=== PATIENT | female | born 1930 | race Caucasian/White ===

== ENCOUNTER 2018-06-01 18:12 | Emergency (ER) | payer MEDICARE ==
[~2018-06-01] VITALS: Ht 165.1 cm; Wt 76.7 kg
[2018-06-01 18:16] VITALS: BP 175/78
[2018-06-01] MEDS ORDERED: KETOROLAC 30 MG/ML VIAL IVP ONE (18:25)
[2018-06-01] MEDS ORDERED: hydrALAZINE 20 MG/ML VIAL IVP ONE (18:35)
[2018-06-01 20:30] VITALS: BP 165/74
== END 2018-06-01 20:30 | disposition home or self-care (01) ==
LOC: MED 18:12
DX: S00.83XA Contusion of other part of head, initial encounter (principal); S80.01XA Contusion of right knee, initial encounter; I10 Essential (primary) hypertension; Z88.2 Allergy status to sulfonamides; W01.0XXA Fall on same level from slipping, tripping and stumbling without subsequent striking against object, initial encounter; Y93.89 Activity, other specified; Y92.098 Other place in other non-institutional residence as the place of occurrence of the external cause; Y99.8 Other external cause status
CPT/HCPCS: 70450; 70486; 72125; 73562; 96374; 96375; 99284; J0360; J1885; Q0092

== ENCOUNTER 2018-08-29 16:13 | Emergency (ER) | payer MEDICARE ==
[~2018-08-29] VITALS: Ht 160 cm; Wt 63.5 kg
[2018-08-29 16:22] VITALS: BP 180/78
--- NOTE | 2018-08-29 16:25 | NUR ---
PT. BIB ALS FROM HOME DUE TO RT LEG PAIN AND WEAKNESS. STATES " SHE FELL ABOUT 2 MONTHS AGO SHE CAME HERE AND THEY SAID SHE WAS OKAY BUT EVER SINCE THEN IT HAS PROGRESSIVELY BEEN GETTING WORSE THE PAIN AND LAST NIGHT IT GOT WORSE SHE SAID SHE COULDNT WALK". 10/10 [place] PAIN WHEN TRYING TO WALK AND 5/10 [place] PAIN WHEN LAYING DOWN THAT RADIATES FROM HIP DOWN TO RT FOOT. NO BRUISING OR DEFORMITY NOTED TO RT LEG . CAP REFILL LESS THAN 3 SEC. RR EVEN AND UNLABORED. PT. ABLE TO SPEAK IN FULL AND COMPLETE SENTENCES. AT BEDSIDE. WILL CONTINUE TO MONITOR. SAFETY PRECAUTIONS IMPLEMENTED. SHIRIN SOLO NOTIFIED.
--- NOTE | 2018-08-29 16:45 | NUR ---
PT. UNABLE TO PROVIDE URINE AT THIS TIME. PROVIDED A CUP OF WATER
--- NOTE | 2018-08-29 16:46 | NUR ---
PT. PLACED ON BED MADSEN AND PROVIDED WITH A CUP OF WATER.
--- NOTE | 2018-08-29 16:56 | NUR ---
PT. TAKEN TO CT SCAN AND XRAY BY [facility] VIA SKYE.
[2018-08-29 17:41] LABS: BASOPHILS # (AUTO) 0.1 K/uL (0.00-0.22); BASOPHILS % (AUTO) 0.9 % (0.0-2.0); EOSINOPHILS # (AUTO) 0.5 K/uL (0-0.4); EOSINOPHILS % (AUTO) 5.8 % (0.0-4.0); HEMATOCRIT 40.9 % (36-48); HEMOGLOBIN 13.4 g/dL (12.0-16.0); LYMPHOCYTES # (AUTO) 2.2 K/uL (2.5-16.5); MEAN CORPUSCULAR HEMOGLOBIN 29 pg (27-31); MEAN CORPUSCULAR HGB CONC 33 g/dL (33-37); MONOCYTES # (AUTO) 0.7 K/uL (0.8-1.0); MONOCYTES % (AUTO) 7.9 % (1.7-9.3); NEUTROPHILS # (AUTO) 5.1 K/uL (1.8-7.7); NEUTROPHILS % (AUTO) 59.4 % (42.2-75.2); PLATELET COUNT (AUTO) 221 K/uL (140-450); RED CELL DISTRIBUTION WIDTH 14.6 % (11.6-13.7); WHITE BLOOD COUNT (AUTO) 8.5 K/uL (4.8-10.8)
--- NOTE | 2018-08-29 17:50 | NUR ---
PT. STATED " THEY DID NOT EVEN XRAY MY LEG AND I CAME BECAUSE MY LEG HURTS". NOTIFIED ER MD SHAH AND SAID HE WAS TO SEE THE PATIENT AND SEE WHAT HAS BEEN DONE. INFORMED PATIENT AT THIS TIME.
[2018-08-29 18:01] LABS: ANION GAP 9.2 (8-16); CARBON DIOXIDE 32.2 mmol/L (21-32); CHLORIDE 103 mmol/L (98-107); CREATININE 1.1 mg/dL (0.6-1.3); GLUCOSE 113 mg/dL (74-106); POTASSIUM 4.4 mmol/L (3.5-5.1); SODIUM SERUM 140 mmol/L (136-145); UREA NITROGEN, BLOOD 18 mg/dL (7-18)
[2018-08-29 18:16] LABS: ALBUMIN 3.7 g/dL (3.4-5.0); ASPARTATE AMINOTRANSFERASE 22 U/L (15-37); LIPASE 192 U/L (73-393); MAGNESIUM 1.9 mg/dL (1.8-2.4); THYROID STIMULATING HORMONE 2.71 uIU/mL (0.34-3.74); TOTAL BILIRUBIN 0.8 mg/dL (0.0-1.0)
--- NOTE | 2018-08-29 19:20 | NUR ---
Pt report given to GAMALIEL CALLE . Transfer of care at this time.
--- NOTE | 2018-08-29 19:21 | NUR ---
RECIEVED REPORT FROM FOSTER ALSTON AT THIS TIME
[2018-08-29 19:44] LABS: APPEARANCE,URINE CLEAR (CLEAR); COLOR,URINE YELLOW (YELLOW)
[2018-08-29 19:45] LABS: BILIRUBIN,URINE NEGATIVE (NEGATIVE); BLOOD, URINE NEGATIVE (NEGATIVE); LEUKOCYTE ESTERASE ,URINE NEGATIVE (NEGATIVE); NITRITE, URINE NEGATIVE (NEGATIVE); UGLUCOSE NEGATIVE (NEGATIVE)
[2018-08-29 20:12] LABS: RBC,URINE 0-5 (RARE) /HPF (0-5)
[2018-08-29 20:13] LABS: WBC,URINE 6-15 (FEW) /HPF (0-5)
[2018-08-29 20:20] VITALS: BP 137/74
--- NOTE | 2018-08-29 20:20 | NUR ---
Patient does not wish to proceed with medical care recommended by Dr Abarca. Patient given information related to possible complications, up to and including , which could occur as a result of leaving hospital at this time. Patient verbalizes understanding of risks involved leaving against medical advice. Patient has signed AMA form.
== END 2018-08-29 20:20 | disposition left against medical advice (07) ==
LOC: MED 16:13
DX: I48.91 Unspecified atrial fibrillation (principal); E78.5 Hyperlipidemia, unspecified; I10 Essential (primary) hypertension; Z88.2 Allergy status to sulfonamides
CPT/HCPCS: 36415; 70450; 71045; 80053; 81001; 81003; 82550; 83690; 83735; 84443; 84484; 85025; 87086; 93005; 93971; 99285; Q0092